=== PATIENT | male | born 1970 | race Caucasian/White ===

== ENCOUNTER 2020-04-16 07:39 | Outpatient (CLI) | payer BC ==
--- NOTE | 2020-04-16 10:37 | MRI ---
MRI OF RIGHT HIP PERFORMED WITHOUT CONTRAST ENHANCEMENT: HISTORY: Right hip pain for the past 6 weeks. FINDINGS: The pelvic ring is intact. SI joints appear symmetric. I do not see any intrapelvic abnormalities. The hamstring tendon origins appear unremarkable. The small field of view images of the right hip show marked edema changes within the right femoral he ad and in basically the entire femoral neck to the intratrochanteric region. There are several areas of T1 lucency seen on the axial images, but I do not see a definitive stress fracture at this time. There is articular cartilage loss and some subtle flattening to the superior articular surface of th e femoral head with severe articular cartilage loss in this area. There is associated irregularity t o the labrum suggesting more of a chronic labral fraying. The gluteus minimus and medias tendon insertion show minimal tendinosis change. No trochanteric burs itis. No muscle strain. IMPRESSION: Diffuse marked marrow edema change involving the entire femoral head and neck region consistent with prominent stress-type reaction. I do not see a definitive stress fracture at this time, although the re are some subtle areas of T1 lucency along the medial side of the femoral neck which would be jason rning for early changes of the developing fracture. There are also some subchondral bony changes wit h subtle flattening to the superior weightbearing surface of the femoral head with marked articular c artilage loss in this area. There is associated degeneration to the labrum. These findings were tel ephoned to Lis at Dr. Britt's office. CODE CR POS: PARRIS
== END 2020-04-16 07:40 | disposition home or self-care (01) ==
LOC: TBSIIMAG 07:39
PROVIDERS: ATTEND Orthopaedic Surgery
DX: M25.551 Pain in right hip (principal); R60.0 Localized edema; M16.11 Unilateral primary osteoarthritis, right hip; M24.151 Other articular cartilage disorders, right hip

== ENCOUNTER 2022-05-04 19:30 | Outpatient (CLI) | payer BC | END 2022-05-04 19:31 | disposition home or self-care (01) | LOC: SLEEPLAB 19:30 | PROVIDERS: ATTEND Internal Medicine | DX: G47.33 Obstructive sleep apnea (adult) (pediatric) (principal); R53.83 Other fatigue; R06.83 Snoring; G47.00 Insomnia, unspecified; G47.10 Hypersomnia, unspecified; I10 Essential (primary) hypertension; F32.9 Major depressive disorder, single episode, unspecified; F98.8 Other specified behavioral and emotional disorders with onset usually occurring in childhood and adolescence; F41.9 Anxiety disorder, unspecified | CPT/HCPCS: 95811 ==